=== PATIENT | male | born 1960 | race Hispanic/Latino ===

== ENCOUNTER 2017-04-14 20:56 | Emergency (ER) | payer MEDICARE, MEDICAID ==
[2017-04-14 21:05] VITALS: BP 123/67; PULSE 88; RESP 20; O2SAT 92
--- NOTE | 2017-04-14 21:07 | ED.REPORT ---
HPI-Chest Pain 40 and Over Date of Service Apr 14, 2017 ED Provider: Dr. Sauer Pt is a 57 year old male with a hx of alcoholism who presents to the ED with a desire to detox. He reports that he was sober for 17 months, and then he found out that his dad had , and he began to drink alcohol again. Pt states that he has been drinking heavily for the past 3 days. He admits to seizures with his withdrawals in the past. Pt reports that he has been experiencing chest pain for the past couple of hours. He denies shortness of breath, diaphoresis, or any other symptoms. Nursing Notes Stated Complaint: CHEST PAIN,ETOH Nursing Notes Reviewed: Yes Allergies: Coded Allergies: No Known Allergies (Verified Allergy, Unknown, 10/23/15) No Active Prescriptions or Reported Meds General Time Seen by MD: 21:06 Chief Complaint Other (Alcohol detox) Hx Obtained From: Patient Arrived By: Ambulance Sudden in Onset?: Yes Onset Occurred: Just prior to arrival Symptom Duration: Since onset Location: : Chest left Quality: Painful Severity: Current: Mild Severity: Maximum: Mild Similar Sx Previous: Yes Past Medical History Past Medical History Notes: Patient just discharged after hospitalization January 0610/18 for EtOH intoxication/Abuse Patient with multiple visits for EtOH (this is 7 ED visit in December 2014, and does not include the additional 9 days of hospitalization time) Past Medical History 1. Degenerative disk disease. 2. Osteoarthritis. 3. Chronic back pain. 4. Anxiety. 5. Alcohol abuse Reports: Diabetes mellitus Past Surgical History back surgery in 1998 Carpal tunnel release in 1980 And fracture repair in 1991 Family History Noncontributory Smoking History Current Every Day Smoker Social History The patient recently lost his and sister. He has been sober for 7 years until the last several weeks. Homeless. Alcohol Use: >5 per day Drug Use: Denies drug use Other Social History: Local resident Ambulatory Status Independent Review of Systems Constitutional: Denies: Chills, Fever, Malaise, Weakness - generalized Respiratory: Denies: Non-productive cough, Shortness of breath, Wheezing Cardiovascular: Reports: Chest pain, Denies: Syncope GI: Denies: Constipation, Nausea, Vomiting Musculoskeletal: Denies: Back pain Skin: Denies Diaphoresis Neurologic: Denies: Change LOC, Dizziness, Headache, Syncope, Weakness Complete sys rev & neg: except as marked. Physical Exam Initial Vital Signs Vital Signs (First) Date Time Temp Pulse Resp B/P Pulse Ox O2 Delivery O2 Flow Rate FiO2 04/14/17 21:05 36.5 88 20 123/67 92 04/15/17 01:57 Room Air Initial VS: Reviewed Head / Eyes: Atraumatic, Normocephalic, PERRL ENT: Mucous membranes moist, Conjunctiva normal, No scleral icterus Neck: Supple, Non-tender, Full range of motion Back: No CVA tenderness Skin: Warm, Dry, No cyanosis General/Constitutional: Awake, Alert Respiratory / Chest: Atraumatic, Breath sounds NL, Breath sounds = bilat, No respiratory distress Reproducible left chest wall tenderness Cardiovascular: Heart rate NL, Regular rhythm, Heart sounds NL, No gallop, No murmurs, No rubs Abdomen: Atraumatic, Soft, Non-tender Interpretation & Diagnostics Lab Results Interpretation Result Diagram: 04/14/17 2251 04/14/17 2251 Test 04/14/17 22:51 White Blood Count 5.7th/mm3 (3.8-10.1) Red Blood Count 4.23mil/mm3 (4.40-5.80) Hemoglobin 12.7g/dL (13.8-17.2) Hematocrit 37.9% (41.0-50.0) Mean Corpuscular Volume 89.6fL (81-100) Mean Corpuscular Hemoglobin 30.0pg (27.0-35.0) Mean Corpuscular Hemoglobin Concent 33.5% (32.0-37.0) Red Cell Distribution Width 15.6% (12.3-15.4) Platelet Count 252bil/L (150-400) Neutrophils (%) (Auto) 38.6% (40-74) Lymphocytes (%) (Auto) 46.0% (14-46) Monocytes (%) (Auto) 12.8% (4-12) Eosinophils (%) (Auto) 1.9% (0-5) Basophils (%) (Auto) 0.5% (0-3) Sodium Level 142mEq/L (134-144) Potassium Level 3.7mEq/L (3.5-5.2) Chloride Level 102mEq/L (97-108) Carbon Dioxide Level 24mmol/L (18-29) Blood Urea Nitrogen 11mg/dL (6-24) Creatinine 1.09mg/dL (0.76-1.27) Estimat Glomerular Filtration Rate 74mL/min (>59) Glucose Level 128mg/dL (60-99) Calcium Level 8.4mg/dL (8.5-10.1) Magnesium Level 2.3mg/dL (1.6-2.6) Total Bilirubin 0.2mg/dL (0.0-1.2) Aspartate Amino Transf (AST/SGOT) 44U/L (0-50) Alanine Aminotransferase (ALT/SGPT) 20U/L (0-44) Alkaline Phosphatase 135U/L (25-150) Troponin T 0.010ug/L (0.0-0.011) Total Protein 7.2g/dL (6.4-8.4) Albumin 3.9g/dL (3.4-5.0) Hold Infante Top Tube Received (Received) ECG Interpretation ECG Interpretation: SR - 81 No STT changes Time: 23:14 Interpreted by: ED physician X-Ray Chest Interpretation Chest Xray Interpretation: IMPRESSION: No acute cardiopulmonary disease. Dictated by: Darren Guaman M.D. on 04/14/2017 at 21:32 Re-Eval/Medical Decision Med Decision/Clinical Course 57-year-old male history of alcohol abuse presenting requesting detox. Patient was sober for 17 months but his father 3 days ago and he has been binge drinking. He reports last alcohol yesterday. He also reported some left-sided chest pain earlier today. It is reproducible on exam. It resolves with Toradol. Chest x-ray, troponins are unremarkable. Suspect musculoskeletal. We are able to secure a spot [facility]. He will be sent with an Ativan taper to [facility] for [facility]. 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 Counseled Regarding: Diagnosis, Lab results, When/why to return to ED Discharge & Departure Disposition: Home Discharge Condition All VS Reviewed: Yes Condition: Stable Additional Instructions: Proceed directly to [facility]. Use the Ativan taper as directed. Abstain from drinking alcohol. Return to the emergency department with any seizures, fevers, nausea, vomiting, or any other worsening or concerning symptoms. Referrals: Higinio Church MD (PCP) Scribe Attestation Portions of this note were transcribed by Gertrudis Ortiz. I, Dr. Sauer personally performed the history, physical exam and medical decision-making; I reviewed and confirmed the accuracy of the information in the transcribed note. Signed by:Lisa Solomon, 04/14/2017 [Time]. copies to: Higinio Church MD, Ben M MD Apr 14, 2017 21:06 MAYRA ORTIZ Apr 14, 2017 21:44
--- NOTE | 2017-04-14 21:34 | DRSVH ---
PROCEDURE: X-RAY CHEST ONE VIEW, PORTABLE ([id number]) INDICATIONS: 57 year-old male with chest pain. TECHNIQUE: One view of the chest was acquired. COMPARISON: [facility], CR, XR CHEST 1VW (PORTABLE), 10/23/2015, 20:00. [facility], CR, CHEST 1VW (PORTABLE), 01/06/2015, 16:13. [facility], CR, CHEST 1VW (PORTABLE) , 01/06/2015, 4:11. FINDINGS: Surgical changes and devices: None. Lungs and pleura: No pleural effusions or pneumothorax. Lungs are clear. Mediastinum: Mediastinal contours appear normal. Heart size is normal. Bones and chest wall: No suspicious bony lesions. Overlying soft tissues appear unremarkable. IMPRESSION: No acute cardiopulmonary disease. Dictated by: Darren Guaman M.D. on 04/14/2017 at 21:32 Approved by: Darren Guaman M.D. on 04/14/2017 at 21:32
[2017-04-14] MEDS ORDERED: 0.9% Sodium Chloride 1,000 ML IV ONE (21:50)
[2017-04-14] MEDS ORDERED: Buprenorphine 2 mg SL Tablet SL ONE (22:10)
[2017-04-14 23:01] LABS: BASOPHILS % (AUTO) 0.5 % (0-3); EOSINOPHILS % (AUTO) 1.9 % (0-5); MONOCYTES % (AUTO) 12.8 % (4-12); Mean Corpuscular Volume 89.6 fL (81-100); NEUTROPHILS % (AUTO) 38.6 % (40-74); Platelet Count 252 bil/L (150-400)
[2017-04-14 23:24] LABS: TROPONIN T 0.01 ug/L (0.0-0.011)
[2017-04-14 23:35] LABS: Magnesium 2.3 mg/dL (1.6-2.6)
[2017-04-15 01:57] VITALS: BP 100/51; PULSE 81; RESP 18; O2SAT 94
[2017-04-15] MEDS: _LORazepam 2 MG Tablet PO SCH (02:44)
== END 2017-04-15 02:45 | disposition home or self-care (01) ==
LOC: SED 20:56
DX: R07.9 Chest pain, unspecified (principal); F10.20 Alcohol dependence, uncomplicated; F17.200 Nicotine dependence, unspecified, uncomplicated; E11.9 Type 2 diabetes mellitus without complications; F41.9 Anxiety disorder, unspecified; Z59.0 Homelessness
CPT/HCPCS: 36415; 71010; 80053; 81002; 82075; 83735; 84484; 85025; 93005; 96374; 99285; J1885